=== PATIENT | female | born 1950 | race Caucasian/White ===

== ENCOUNTER 2020-06-12 07:24 | Day surgery (SDC) | payer MEDICARE ==
[~2020-06-12] VITALS: Ht 165.1 cm; Wt 81.4 kg
[~2020-06-12 07:24] MED LIST: ACYC400 PO; ARTTEAOPSO OP; OPTLUBOPO OP; PRED10 PO
== END 2020-06-12 09:25 | disposition home or self-care (01) ==
LOC: ORSCSDS 07:24
PROVIDERS: Surgery
PROC: 0DJD8ZZ Inspection of Lower Intestinal Tract, Via Natural or Artificial Opening Endoscopic (ICD-10-PCS; principal; 2020-06-12 08:30)
DX: Z12.11 Encounter for screening for malignant neoplasm of colon (principal); K57.30 Diverticulosis of large intestine without perforation or abscess without bleeding; F17.210 Nicotine dependence, cigarettes, uncomplicated
CPT/HCPCS: J0330; J0461; J2405; J2704; J7120